=== PATIENT | female | born 1985 | race American Indian/Alaskan Native ===

== ENCOUNTER 2017-07-03 16:19 | Emergency (ER) | payer OTHER ==
--- NOTE | 2017-07-03 19:43 | Emergency Department Report ---
Blank Doc - Documentation Documentation: Patient is a 31-year-old woman who is presenting with vaginal bleeding. Patient had intercourse last night and knows some bleeding afterwards. Patient is approximately 7 weeks is not SOUND today. Patient does have some mild lower abdominal crampiness. Patient will have a beta Quant ultrasound and a ABO/ Rh performed. Emergency department.
[2017-07-03 21:27] LABS: Basophils % (Auto) 0.4 % (0.0-1.8); Eosinophils % (Auto) 0.5 % (0.0-4.3); Hematocrit 38.6 % (30.3-42.9); Hemoglobin 12.9 gm/dl (10.1-14.3); Lymphocytes # (Auto) 1.5 K/mm3 (1.2-5.4); Lymphocytes % (Auto) 26.5 % (13.4-35.0); Mean Corpuscular HGB Conc 33 % (30-34); Mean Corpuscular Hemoglobin 31 pg (28-32); Mean Corpuscular Volume 92 fl (79-97); Monocytes # (Auto) 0.6 K/mm3 (0.0-0.8); Monocytes % (Auto) 9.7 % (0.0-7.3); Platelet Count 156 K/mm3 (140-440); Red Blood Count 4.21 M/mm3 (3.65-5.03)
[2017-07-03 21:42] LABS: BUN/Creatinine Ratio 10; Blood Urea Nitrogen 5 mg/dL (7-17); Calcium 9.4 mg/dL (8.4-10.2); Hemolysis Index 4
--- NOTE | 2017-07-03 22:10 | Emergency Department Report ---
ED HPI - General Chief complaint: Vaginal Bleeding Stated complaint: VAGINAL BLEED/ Time Seen by Provider: 07/03/17 19:35 Source: patient Mode of arrival: Ambulatory Limitations: No Limitations - History of Present Illness Initial comments: This is a 31-year-old female nontoxic, well nourished in appearance, no acute signs of distress presents to the ED with c/o of vaginal bleeding x1 episode. Patient stated she had a sexual intercourse last night and wake up this morning with some bleeding noted on the sheets. Patient stated that she then put a pad with no vaginal bleeding noted. Patient stated she is curretnly 7 weeks . Patient andrewnltrey denies any vaginal bleeding, chest pain, shortness of breathe, fever, chills, headache, nausea, vomiting, back pain. Patient stated has mild lower pelvic cramping intermittent. Patient denies having a [facility]. Patient denies any allergies or PMH. MD Complaint: vaginal bleeding -: This morning Location: pelvis Radiation: none Severity: mild Severity scale (0 -10): 3 Quality: cramping Consistency: intermittent Improves with: none Worsens with: none Associated symptoms: vaginal bleeding. denies: nausea/vomiting, vaginal discharge, abdominal pain, dysuria, headache, vision changes, malaise, dysparuenia, rash, seizure, shortness of breath, syncope, weakness Vaginal bleeding: none :: Yes Number of weeks : 7 OB History - Current : no complications OB History - Previous Pregnancies: no complications Pre- care: none - Related Data : 0 Para: 1 Ab: 0 Allergies Allergy/AdvReac Type Severity Reaction Status Date / Time No Known Allergies Allergy Unverified 07/03/17 16:54 ED Review of Systems ROS: Stated complaint: VAGINAL BLEED/ Other details as noted in HPI Constitutional: denies: chills, fever Eyes: denies: eye pain, eye discharge, vision change ENT: denies: ear pain, throat pain Respiratory: denies: cough, shortness of breath, wheezing Cardiovascular: denies: chest pain, palpitations Endocrine: no symptoms reported Gastrointestinal: abdominal pain. denies: nausea, diarrhea Genitourinary: denies: urgency, dysuria, discharge Musculoskeletal: denies: back pain, joint swelling, arthralgia Skin: denies: rash, lesions Neurological: denies: headache, weakness, paresthesias Psychiatric: denies: anxiety, depression Hematological/Lymphatic: denies: easy bleeding, easy bruising ED Past Medical Hx - Past Medical History Previous Medical History?: No - Surgical History Past Surgical History?: No - Social History Smoking Status: Never Smoker Substance Use Type: None ED Physical Exam - General Limitations: No Limitations General appearance: alert, in no apparent distress - Head Head exam: Present: atraumatic, normocephalic - Eye Eye exam: Present: normal appearance, PERRL, EOMI Pupils: Present: normal accommodation - ENT ENT exam: Present: normal exam, normal orophraynx, mucous membranes moist, TM's normal bilaterally, normal external ear exam - Neck Neck exam: Present: normal inspection, full ROM. Absent: tenderness, meningismus, lymphadenopathy, thyromegaly - Respiratory Respiratory exam: Present: normal lung sounds bilaterally. Absent: respiratory distress, wheezes, rales, rhonchi, stridor, chest wall tenderness, accessory muscle use, decreased breath sounds, prolonged expiratory - Cardiovascular Cardiovascular Exam: Present: regular rate, normal rhythm, normal heart sounds. Absent: irregular rhythm, systolic murmur, diastolic murmur, rubs, gallop - GI/Abdominal GI/Abdominal exam: Present: soft, normal bowel sounds. Absent: distended, tenderness, guarding, rebound, rigid, diminished bowel sounds - Rectal Rectal exam: Present: deferred - Extremities Exam Extremities exam: Present: normal inspection, full ROM, normal capillary refill. Absent: tenderness, pedal edema, joint swelling, calf tenderness - Back Exam Back exam: Present: normal inspection, full ROM. Absent: tenderness, CVA tenderness (R), CVA tenderness (L), muscle spasm, paraspinal tenderness, vertebral tenderness, rash noted - Neurological Exam Neurological exam: Present: alert, oriented X3, CN II-XII intact, normal gait, reflexes normal - Psychiatric Psychiatric exam: Present: normal affect, normal mood - Skin Skin exam: Present: warm, dry, intact, normal color. Absent: rash ED Course Vital Signs 07/03/17 16:54 Temperature 97.9 F Pulse Rate 58 L Respiratory 18 Rate Blood Pressure 109/51 O2 Sat by Pulse 100 Oximetry - Reevaluation(s) Reevaluation #1: 07/03/17 22:10 Patient is speaking in full sentences with no signs of distress noted. - Consultations Consultation #1: 07/03/17 22:10 Patient has been consulted with Dr. Saleh about patient history, physical exam , and labs and examined and screened patient and agrees to ED plan of care and discharge plan of care. ED Medical Decision Making - Lab Data Result diagrams: 07/03/17 20:52 07/03/17 19:53 - Medical Decision Making This is a 31-year-old female that presents with vaginal bleeding. Patient is stable and was examined by me and Dr. Saleh. Labs obtained within normal limits. Beni obtained at 114,000. US OB obtained and dictated by radiologst. Patient is notified of US report with no questions noted by the patient. Patient was instructed to Follow-up with a [facility]OCI[facility] doctor in 3-5 days or if symptoms worsen and continue return to emergency room as soon as possible. At time of discharge, the patient does not seem toxic or ill in appearance. No acute signs of distress noted. Patient agrees to discharge treatment plan of care. No further questions noted by the patient. Critical care attestation.: If time is entered above; I have spent that time in minutes in the direct care of this critically ill patient, excluding procedure time. ED Disposition Clinical Impression: Vaginal bleeding Disposition: DC-01 TO HOME OR SELFCARE Is pt being admited?: No Does the pt Need Aspirin: No Condition: Stable Instructions: (ED) Additional Instructions: Follow-up with a [facility]OC[facility] doctor in 3-5 days or if symptoms worsen and continue return to emergency room as soon as possible. Your quantitative serum is at 114,000 Referrals: PRIMARY MD HAYDEN [Primary Care Provider] - 3-5 Days STACY LLAMAS MD [Staff Physician] - 3-5 Days [facility] [Provider Group] - 3-5 Days Forms: Work/School Release Form(ED)
--- NOTE | 2017-07-03 23:40 | Ultrasound Report ---
FINAL REPORT PROCEDURE: US OB < = 14 WEEKS FETUS TECHNIQUE: Real-time transabdominal sonography of the uterus, placenta, amniotic fluid, adnexa, and fetus was performed with image documentation. Measurements were obtained to determine age/size. M-mode Doppler was used to document heartbeat. CPT 61129 HISTORY: preg 7 week vag bleed COMPARISON: No prior studies are available for comparison. FINDINGS: CRL: 6.4 mm, which corresponds to a gestational age of: 12 weeks, 6 days. Embryonic Cardiac Activity: 156 bpm Gestational Sac: Normal. Amniotic fluid: Normal. Cervix: Not well-visualized. Right Ovary: 2.5 centimeter cyst is present Left Ovary: Normal. Estimated delivery date: 01/09/2018 IMPRESSION: Single live intrauterine gestation at approximately 12 weeks 6 days. EDC by US 01/09/2018
[2017-07-04 03:15] VITALS: BP 121/63
== END 2017-07-04 00:20 | disposition home or self-care (01) ==
LOC: ED 16:19
DX: O20.9 Hemorrhage in early pregnancy, unspecified (principal); Z3A.01 Less than 8 weeks gestation of pregnancy
CPT/HCPCS: 36415; 76801; 80048; 84702; 85025; 86900; 86901

== ENCOUNTER 2018-01-09 02:50 | Inpatient (IN) | payer OTHER ==
[2018-01-09] MEDS ORDERED: LACTATED RINGERS 1,000 ML IV ONE (03:33)
[2018-01-09 04:29] LABS: Hematocrit 36.5 % (30.3-42.9); Hemoglobin 12.3 gm/dl (10.1-14.3); Mean Corpuscular HGB Conc 34 % (30-34); Mean Corpuscular Hemoglobin 32 pg (28-32); Mean Corpuscular Volume 95 fl (79-97); Platelet Count 183 K/mm3 (140-440); Red Blood Count 3.85 M/mm3 (3.65-5.03); Red Cell Distribution Width 13.8 % (13.2-15.2)
[2018-01-09] MEDS ORDERED: BRETHINE SUB-Q PRN (05:06)
[2018-01-09] MEDS ORDERED: ZOFRAN IV PRN (05:06)
[2018-01-09] MEDS ORDERED: BRETHINE IVP PRN (05:06)
[2018-01-09] MEDS ORDERED: MINERAL OIL PO PRN (05:06)
[2018-01-09] MEDS ORDERED: XYLOCAINE 2% INFILTRATI ONE (05:06)
[2018-01-09] MEDS ORDERED: NARCAN 0.4 MG/1 ML IV PRN (05:06)
[2018-01-09] MEDS ORDERED: CYTOTEC PO ONE (05:13)
[2018-01-09] MEDS ORDERED: POLYCILLIN/NS 2 GM/100 ML 2 GM/100 ML BAG IV ONE (05:13)
[2018-01-09] MEDS ORDERED: LACTATED RINGERS 1,000 ML IV SCH (06:00)
[2018-01-09] MEDS ORDERED: PFIZERPEN 5 MIL.UNITS in NACL 0.9% 50 ML IV ONE (06:00)
[2018-01-09] MEDS ORDERED: PITOCin/NS 30 UNIT/500ML 30 UNITS/500 ML BAG IV SCH ×2 (06:00→12:00)
[2018-01-09] MEDS ORDERED: PITOCin/NS 20 UNIT/1000ML DRIP 20 UNITS/1,000 ML BAG IV SCH (06:00)
--- NOTE | 2018-01-09 10:18 | History and Physical Report ---
History of Present Illness Date of examination: 01/09/18 Date of admission: 01/09/18 04:26 Chief complaint: Leaking fluid since 23:45 History of present illness: 32yo G 1 P 0 at 40 weeks here with c/o leaking fluid sine 23:45 on 01/08/18. She reports +FMs but denies UCs. +Nitrazine test confirmed in Triage. She is a [facility] patient who initiated acre at 7 weeks. Her care was co-managed with [facility] due to morbid obesity. Labs: O+, antibody neg,rubella immune, VDRL NR, HBsAg neg, HIV neg, Varicella immune, HSV II neg, 1-hr GTT 95, GC/CT neg, GBS neg Past History Past Medical History: no pertinent history Past Surgical History: no surgical history Family/Genetic History: none Social history: , lives with family, full code. denies: smoking, alcohol abuse, prescription drug abuse - Obstetrical History Expected Date of Delivery: 01/09/18 Actual Gestation: 40 Week(s) 0 Day(s) : 1 Para: 0 Hx # Term Pregnancies: 0 Number of Pregnancies: 0 Spontaneous Abortions: 0 Induced : 0 Number of Living Children: 0 Medications and Allergies Allergies Allergy/AdvReac Type Severity Reaction Status Date / Time No Known Allergies Allergy Unverified 07/03/17 16:54 Home Medications Medication Instructions Recorded Confirmed Last Taken Type No Known Home Medications [No 01/09/18 01/09/18 Unknown History Reported Home Medications] Active Meds: Active Medications Butorphanol Tartrate (Stadol) 2 mg IV Q2H PRN PRN Reason: Pain , Severe (7-10) Ephedrine Sulfate (Ephedrine Sulfate) 10 mg IV Q2M PRN PRN Reason: Hypotension Lactated Ringer's (Lactated Ringers) 1,000 mls @ 125 mls/hr IV DIRECT BAIRON Oxytocin/Sodium Chloride (Pitocin/Ns 20 Unit/1000ml Drip) 20 units in 1,000 mls @ 125 mls/hr IV DIRECT BAIRON Oxytocin/Sodium Chloride (Pitocin/Ns 30 Unit/500ml) 30 units in 500 mls @ 2 mls /hr IV TITR BAIRON; Protocol Oxytocin/Sodium Chloride (Pitocin/Ns 30 Unit/500ml) 30 units in 500 mls @ 1 mls /hr IV TITR BAIRON; Protocol Mineral Oil (Mineral Oil) 30 ml PO QHS PRN PRN Reason: Constipation Naloxone HCl (Narcan 0.4 Mg/1 Ml) 0.1 mg IV Q2MIN PRN PRN Reason: Res Rate </= 8 or 02 SAT < 92% Ondansetron HCl (Zofran) 4 mg IV Q8H PRN PRN Reason: Nausea And Vomiting Terbutaline Sulfate (Brethine) 0.25 mg SUB-Q ONCE PRN PRN Reason: Hyperstimulation/Hypertonicity Terbutaline Sulfate (Brethine) 0.25 mg IVP ONCE PRN PRN Reason: Hyperstimulation/Hypertonicity Review of Systems All systems: negative - Vital Signs Vital signs: Vital Signs Pulse BP 109 H 119/65 01/09/18 03:14 01/09/18 03:14 Temp Pulse Resp BP Pulse Ox 98.8 F 100 H 18 108/58 01/09/18 04:00 01/09/18 04:41 01/09/18 04:00 01/09/18 04:41 - Obstetrical FHR: auscultation normal, category 1 FHR comments: baseline 135, moderate variability, + accels, no decels Uterine Contraction Monitor Mode: External Cervical Dilatation: 1 (per RN) Cervical Effacement Percentage: 50 (per RN) station: -3 (per RN) Uterine Contraction Frequency (min): 3-5 Uterine Contraction Pattern: Regular Results Result Diagrams: 01/09/18 03:50 All other labs normal. Assessment and Plan - Patient Problems (1) 40 weeks gestation of Current Visit: Yes Status: Acute (2) Spontaneous rupture of amniotic membranes Current Visit: Yes Status: Acute Plan to address problem: Admit to L&D with routine labor orders Cervical ripening in progress - Misoprostol 50mcg PO given at 05:44 Will continue labor induction with Oxytocin at least 6 hours after Misoprostol Anticipate vaginal delivery
[2018-01-09] MEDS: STADOL IV PRN ×2 (11:49→13:49)
[2018-01-09] MEDS ORDERED: NARCAN 2 MG/2 ML IV PRN ×2 (14:05→14:48)
[2018-01-09] MEDS ORDERED: fentaNYL-BUPIV 2 MCG/ML-0.125% 200 MCG/100 ML BAG EPIDURAL SCH ×2 (15:00)
[2018-01-09] MEDS ORDERED: TUCKS PAD TP PRN (21:09)
[2018-01-09] MEDS ORDERED: DULCOLAX PR PRN (21:09)
[2018-01-09] MEDS ORDERED: TYLENOL PO PRN (21:09)
[2018-01-09] MEDS ORDERED: BENADRYL PO PRN (21:09)
[2018-01-09] MEDS ORDERED: MILK OF MAGNESIA PO PRN (21:09)
[2018-01-09] MEDS ORDERED: LANSINOH TP PRN (21:09)
--- NOTE | 2018-01-09 21:19 | Procedure Note ---
OB Delivery Note - Delivery Date of Delivery: 01/09/18 Surgeon: ZAIDA ALAS Estimated blood loss: 300cc - Vaginal Delivery presentation: vertex Delivery position: OA Delivery augmentation: pitocin Delivery monitor: external FHT, external uterine Route of delivery: Delivery placenta: spontaneous Delivery cord: 3 umbilical vessels Delivery laceration: 1st degree Delivery repair: vicryl Anesthesia: epidural (Spontaneous vaginal delivery of liveborn male OA over intact perineum at 19:58 with apgars of 8/9. weight 7 lb. 2 oz. Epidural anesthesia. Baby placed immediately on maternal chest after ; spontaneous cry and respirations. Spontaneous delivery of intact placenta and membranes by jacome mechanism. EBL 300 ml. Pitocin to IV fluids after delivery of placenta. Fundus firm and midline. Small first degree left labial laceration repaired with 3-0 vicryl. Vaginal sweep negative. Sponge count correct. )
[2018-01-09] MEDS ORDERED: SODIUM CHLORIDE FLUSH SYRINGE 10 ML IV NR (22:00)
[2018-01-09] MEDS: MOTRIN PO SCH (23:51)
[2018-01-10] MEDS: MOTRIN PO SCH ×3 (05:51→23:57)
[2018-01-10] MEDS: COLACE PO SCH ×2 (09:20→21:38)
[2018-01-10] MEDS: PRENATAL VITAMIN PO SCH (09:20)
[2018-01-10 09:54] LABS: Hematocrit 35.8 % (30.3-42.9); Hemoglobin 11.9 gm/dl (10.1-14.3)
--- NOTE | 2018-01-10 11:55 | Progress Note ---
Assessment and Plan day 1 S/P . Subjective - Subjective Date of service: 01/10/18 Principal diagnosis: day 1 S/P Interval history: day 1 S/P . Doing well. Bottlefeeding and . Patient reports small amount of lochia. Patient is voiding without difficulty. Ambulating well. Tolerating a regular diet without nausea or vomiting. Patient denies headache, chest pain, cough, leg pain, or abdominal pain. Patient reports: appetite normal, voiding normally, flatus, ambulating normally [place]: doing well Objective - Vital Signs Latest vital signs: Vital Signs Temp Pulse Resp BP BP Pulse Ox 01/10/18 07:00 98.6 F 77 18 112/78 01/10/18 04:00 98.7 F 78 16 114/78 01/10/18 01:25 98.7 F 66 18 114/79 01/09/18 22:00 99.5 F 98 H 18 127/71 96 01/09/18 21:30 93 H 124/57 01/09/18 21:15 103 H 146/74 01/09/18 20:59 103 H 133/82 01/09/18 20:45 109 H 168/75 01/09/18 20:30 106 H 121/57 01/09/18 20:29 114 H 99 01/09/18 20:24 107 H 82 L 01/09/18 20:20 97.7 F 20 01/09/18 20:19 116 H 98 01/09/18 20:18 103 H 126/59 01/09/18 19:51 88 100 01/09/18 19:46 86 117/56 100 01/09/18 19:41 100 H 100 01/09/18 19:35 98.0 F 20 01/09/18 19:32 90 130/61 01/09/18 19:16 98 H 122/54 01/09/18 19:00 104 H 143/63 100 01/09/18 18:55 105 H 93 01/09/18 18:54 105 H 94 01/09/18 18:50 105 H 96 01/09/18 18:46 98 H 126/67 01/09/18 18:45 101 H 85 01/09/18 18:44 68 L 01/09/18 18:40 106 H 85 01/09/18 18:36 80 L 01/09/18 18:35 57 L 82 L 01/09/18 18:31 101 H 140/61 01/09/18 18:30 87 01/09/18 18:28 104 H 91 01/09/18 18:25 106 H 88 01/09/18 18:23 99 H 100 01/09/18 18:18 100 H 98 01/09/18 18:15 97 H 148/75 86 01/09/18 18:13 99 H 96 01/09/18 18:08 99 H 100 01/09/18 18:03 101 H 96 01/09/18 18:00 108 H 169/69 87 01/09/18 17:58 96 H 85 01/09/18 17:53 44 L 92 01/09/18 17:52 93 01/09/18 17:48 95 H 96 01/09/18 17:46 75 L 01/09/18 17:32 85 01/09/18 17:30 93 H 125/55 99 01/09/18 17:25 92 H 97 01/09/18 17:20 93 H 98 01/09/18 17:16 92 H 110/57 01/09/18 17:15 87 90 01/09/18 17:10 78 77 L 01/09/18 17:09 91 H 99 01/09/18 17:04 100 H 99 01/09/18 17:01 95 H 142/64 88 01/09/18 16:59 98 H 90 01/09/18 16:54 101 H 84 01/09/18 16:49 95 H 99 01/09/18 16:47 91 H 116/56 82 L 01/09/18 16:44 90 100 01/09/18 16:39 86 87 01/09/18 16:34 76 L 01/09/18 16:32 61 L 01/09/18 16:30 100 H 87/51 01/09/18 16:29 70 81 L 01/09/18 16:27 73 L 01/09/18 16:24 69 80 L 01/09/18 16:21 105 H 86 01/09/18 16:19 84 01/09/18 16:16 84 01/09/18 16:15 90 90/44 01/09/18 16:14 73 L 01/09/18 16:11 26 L 90 08/24/18 16:09 98 H 96 01/09/18 16:05 50 L 77 L 01/09/18 16:04 97 H 97 01/09/18 16:01 102 H 117/53 01/09/18 15:59 94 H 96 01/09/18 15:58 78 L 01/09/18 15:54 73 84 01/09/18 15:53 74 L 01/09/18 15:49 99 H 97 01/09/18 15:47 99 H 94 01/09/18 15:44 99 H 80 L 01/09/18 15:41 88 01/09/18 15:38 103 H 97 01/09/18 15:35 81 L 01/09/18 15:34 90 90 01/09/18 15:30 52 L 77 L 01/09/18 15:29 99 H 100 01/09/18 15:24 102 H 96 01/09/18 15:23 104 H 94 01/09/18 15:19 107 H 100 01/09/18 15:15 102 H 120/56 01/09/18 15:14 102 H 100 01/09/18 15:09 103 H 94 01/09/18 15:08 109 H 134/81 93 01/09/18 15:06 101 H 134/68 01/09/18 15:05 92 H 126/63 01/09/18 14:57 98 H 126/72 Intake and Output 01/09/18 01/10/18 01/10/18 23:59 07:59 15:59 Intake Total 2.933 300 Output Total 1550 1800 Balance -1547.067 -1500 Intake: IV 2.933 PITOCin/NS 30 UNIT/500ML 2.933 30 units In 500 ml @ 1 MILLIUNITS/MIN 1 mls/hr IV TITR BAIRON Rx#:[id number] Intake, Free Water 300 Output: Urine 1550 1800 Indwelling Catheter 800 Void 750 1800 Other: Total, Output Amount 750 400 # Voids Void 1 Estimated Blood Loss 300 - Exam Abdomen: Present: normal appearance, soft. Absent: distention, tenderness, guarding, rigidity Uterus: Present: normal, firm, fundal height below umbilicus. Absent: bogginess , tenderness Extremities: Present: normal
[2018-01-10] MEDS ORDERED: NORCO 5/325 PO PRN (12:24)
[2018-01-11] MEDS: MOTRIN PO SCH ×3 (05:08→18:00)
[2018-01-11] MEDS ORDERED: BOOSTRIX IM ONE (06:00)
[2018-01-11] MEDS: PRENATAL VITAMIN PO SCH (12:10)
[2018-01-11] MEDS: COLACE PO SCH (12:10)
--- NOTE | 2018-01-11 12:24 | Progress Note ---
Assessment and Plan A: day 2 S/P spontaneous vaginal delivery. P: Discharge patient home today. Rx Motrin 800 mg, #30, 1 po TID prn called to [facility] in [place]. Discussed with patient discharge instructions and warning signs. Advised pt. to avoid IC for 6 weeks; also advised her to avoid heavy lifting and housework during recovery period. Advised pt. to make an appointment at [facility] to follow up in 6 weeks. Pt. voiced understanding of instructions. Subjective - Subjective Date of service: 01/11/18 Principal diagnosis: day 2 S/P Interval history: day 2 S/P . Doing well. Bottlefeeding and . Patient reports small amount of lochia. Patient is voiding without difficulty. Ambulating well. Tolerating a regular diet without nausea or vomiting. Patient denies headache, chest pain, cough, leg pain, or abdominal pain. She denies heavy vaginal bleeding or symptoms of depression. Patient is undecided what she wants to use for contraception. Patient reports: appetite normal, voiding normally, pain well controlled, ambulating normally [place]: doing well Objective - Vital Signs Latest vital signs: Vital Signs Temp Pulse Resp BP BP Pulse Ox 01/11/18 09:15 98 F 85 18 105/61 01/11/18 05:08 18 01/11/18 00:00 98.0 F 63 18 123/73 01/10/18 23:57 18 01/10/18 16:07 97.7 F 86 18 97/59 96 Intake and Output 01/10/18 01/11/18 01/11/18 23:59 07:59 15:59 Intake Total 240 Balance 240 Intake: Oral 240 Other: Total, Intake Amount 240 # Voids Void 1 1 1 - Exam Cardiovascular: Present: Regular rate, Normal S1, Normal S2 Lungs: Present: Clear to auscultation Abdomen: Present: normal appearance, soft. Absent: distention, tenderness, guarding, rigidity Uterus: Present: normal, firm, fundal height below umbilicus Extremities: Present: normal, edema (mild bilateral pedal edema). Absent: tenderness
--- NOTE | 2018-01-11 12:27 | Discharge Summary ---
Providers - Providers Date of Admission: 01/09/18 04:26 Date of discharge: 01/11/18 Attending physician: Nila Amado Primary care physician: KHOI MURDOCK Hospitalization Reason for admission: rupture of membranes Delivery: Episiotomy: none Laceration: 1st degree Other procedures: none complications: none Discharge diagnosis: IUP at term delivered [place] baby: male Pertinent studies: Labs Hospital course: Normal hospital course. Condition at discharge: Good Disposition: DC-01 TO HOME OR SELFCARE - Discharge Diagnoses (1) Term delivered Status: Acute Plan - Provider Discharge Summary Activity: routine, no sex for 6 weeks, no heavy lifting 4 weeks, no strenuous exercise Diet: routine Instructions: routine Additional instructions: Call your doctor immediately for: * Fever > 100.5 * Heavy vaginal bleeding ( >1 pad per hour) * Severe persistent headache * Shortness of breath * Reddened, hot, painful area to leg or breast - Follow up plan Follow up: KHOI MURDOCK [Primary Care Provider] - 6 Weeks
[2018-01-11 18:53] VITALS: BP 114/70
== END 2018-01-11 18:40 | disposition home or self-care (01) | DRG 775 ==
LOC: TRG 02:50 → LD 04:26 → OB 21:50
PROVIDERS: ADMIT Obstetrics & Gynecology; ATTEND Obstetrics & Gynecology
PROC: 10E0XZZ Delivery of Products of Conception, External Approach (ICD-10-PCS; principal; 2018-01-09)
PROC: 0HQ9XZZ Repair Perineum Skin, External Approach (ICD-10-PCS; 2018-01-09)
PROC: 3E0R3BZ Introduction of Anesthetic Agent into Spinal Canal, Percutaneous Approach (ICD-10-PCS; 2018-01-09)
PROC: 00HU33Z Insertion of Infusion Device into Spinal Canal, Percutaneous Approach (ICD-10-PCS; 2018-01-09)
DX: O42.02 Full-term premature rupture of membranes, onset of labor within 24 hours of rupture (principal); Z68.41 Body mass index [BMI] 40.0-44.9, adult; O99.214 Obesity complicating childbirth; E66.01 Morbid (severe) obesity due to excess calories; O70.0 First degree perineal laceration during delivery; Z3A.40 40 weeks gestation of pregnancy; Z37.0 Single live birth
CPT/HCPCS: 36415; 85014; 85018; 85027; 86592; 86850; 86900; 86901; 90471; 90715; J0290; J0595; J2540; J2590; J7120